=== PATIENT | female | born 1990 | race Caucasian/White ===

== ENCOUNTER 2017-08-08 06:42 | Outpatient (CLI) | payer OTHER | END 2017-08-08 06:43 | disposition home or self-care (01) | LOC: BICRAD 06:42 | PROVIDERS: ATTEND Nurse Practitioner Family | DX: J45.30 Mild persistent asthma, uncomplicated (principal) | CPT/HCPCS: 71046 ==

== ENCOUNTER 2018-03-13 12:24 | Emergency (ER) | payer OTHER ==
[2018-03-13 13:04] LABS: Base Excess-Venous 1.6 mmol/L (0 (+/- 2.5)); Bicarbonate (HCO3v) 24.9 mmol/L (1.0-85.0); CO2 Tension (PvCO2) 34.6 mmHg (41.0-51.0); Calcium, Ionized 1.19 mmol/L (1.12-1.32); Hemoglobin - Calc 13.4 g/dL (12.0-18.0); O2 Tension (PvO2) 53.1 mmHg (35.0-45.0); Potassium 3.1 mmol/L (3.4-4.7); pH (Venous) 7.466 (7.35-7.45); vO2 Saturation-calc 89.3 % (94-98)
[2018-03-13 13:12] LABS: Lactate 1.28 mmol/L (0.50-2.20)
[2018-03-13 13:15] LABS: Bilirubin Negative (Negative); Blood, Urine Trace (Negative); Clarity CLEAR (Clear); Glucose, Urine (Dipstick) Negative (Negative); Leukocyte Trace (Negative); Nitrite Negative (Negative); Protein, Urine (Dipstick) Negative (Neg-Trace); Specific Gravity, Urine 1.015 (1.002-1.036); Urobilinogen 0.2 mg/dL (0.2-1.0)
[2018-03-13 13:17] LABS: Bacteria/HPF Rare-Few HPF (None Seen); Hyaline Casts/LPF 0-3 HYALINE CAST LPF (0-3 Hyaline); Pathc Cast-AUWi Flag 0.14 (0-2.49); Pregnancy Test - Urine (BHCG) Negative (Negative); Pregu Control Background? CLEAR/WHITE (CLR/WHITE); Pregu Control Bar Appear? YES (CONTROL BAR); Specific Gravity 1.015 (1.002-1.036); Squamous Epithelial 0-3 HPF (0-3)
[2018-03-13 13:18] LABS: Renal Epithelial None Seen HPF (0-3); Transitional Epithelial NONE SEEN HPF (0-3)
[2018-03-13 13:20] LABS: #Eosinphils 0.2 thou/uL (0.0-0.7); #Monocytes 1.7 thou/uL (0.11-0.59); #Neutrophils 11.9 thou/uL (1.40-6.50); %Basophils 0.2 % (0.0-1.0); %Eosinophils 1.5 % (0.0-10.0); %Lymphocytes 6.9 % (21.0-51.0); %Monocytes 11.5 % (0.0-10.0); %Neutrophils 79.9 % (42.0-75.0); Hemoglobin 12.5 g/dL (12.0-16.0); Mean Corpuscular HGB CONC 32.6 g/dL (32.0-36.0); Mean Corpuscular Hemoglobin 29.6 pg (27.0-31.0); Mean Platelet Volume 8.6 fL (7.4-10.4); Platelet Count 223 thou/uL (130-400); RBC Distribution Width 12.5 % (11.5-14.5); Red Blood Cell (RBC) Count 4.22 mill/uL (4.20-5.40); White Blood Cell (WBC) Count 14.9 thou/uL (4.8-10.8)
[2018-03-13 13:44] LABS: ALT (SGPT) 11 U/L (8-55); AST (SGOT) 13 U/L (5-34); Albumin 4.1 g/dL (3.5-5.0); Alkaline Phosphatase 45 U/L (40-150); Anion Gap 13 mmol/L (10-20); BUN (Urea Nitrogen) 9 mg/dL (7.0-18.7); Bilirubin, Total 0.2 mg/dL (0.2-1.2); Calc. Creatinine Clearance 0 mL/min (70-130); Calcium 8.9 mg/dL (7.8-10.44); Carbon Dioxide 21 mmol/L (22-29); Chloride 103 mmol/L (98-107); Estimated GFR-MDRD 84; Globulin 2.7 g/dL (2.4-3.5); Glucose 105 mg/dL (70-105); Lipase 11 U/L (8-78); Potassium 3.3 mmol/L (3.5-5.1); Protein, Total 6.8 g/dL (6.0-8.3); Sodium 134 mmol/L (136-145)
--- NOTE | 2018-03-13 13:49 | RAD ---
PORTABLE CHEST 1 VIEW: DATE: 03/13/2018. TIME: 1:44 p.m. HISTORY: Abdominal pain with associated nausea, vomiting, and fever. FINDINGS: The heart size is normal. The lungs are clear. The bony thorax is normal. IMPRESSION: Normal exam. POS: C
[2018-03-13] MEDS ORDERED: cefTRIAXone\\ROCEPHIN 2 GM VIAL ONE (14:33)
[2018-03-13] MEDS ORDERED: Ketorolac Tromethamine 30 MG/ML VIAL ONE (15:10)
[2018-03-13] MEDS ORDERED: Acetaminophen 500 MG TAB ONE (17:27)
--- NOTE | 2018-03-13 18:59 | ULT ---
RENAL ULTRASOUND: 03/13/18 HISTORY: Right flank pain. TECHNIQUE: Multiplanar dye scale and color doppler images were obtained in a renal ultrasound. FINDINGS: The kidneys are normal in echogenicity without hydronephrosis or calculi measuring 10.7 and 10.5 cm i n length on the right and left, respectively. Limited visualization of the urinary bladder is unremarkable. Both ureteral jets were visualized. IMPRESSION: Unremarkable renal ultrasound. POS: CET
== END 2018-03-13 17:53 | disposition home or self-care (01) ==
LOC: ERS 12:24
DX: N12 Tubulo-interstitial nephritis, not specified as acute or chronic (principal); J45.909 Unspecified asthma, uncomplicated; Z79.899 Other long term (current) drug therapy
CPT/HCPCS: 36415; 71045; 76770; 80053; 81003; 81015; 81025; 82330; 82803; 83605; 83690; 85025; 94760; 96361; 96365; 96375; J0696; J1885

== ENCOUNTER 2019-02-04 16:18 | Day surgery (SDC) | payer OTHER ==
[2019-02-04 17:03] VITALS: BP 117/68; TEMP 98
[2019-02-04 17:04] VITALS: BMI 28.3
[2019-02-04] MEDS ORDERED: FLU VACC QS2019-20(6MOS UP)/PF 60 MCG/0.5 ML SYRINGE IM ONE (17:15)
[2019-02-04] MEDS ORDERED: hydrALAZINE 20 MG/ML VIAL SLOW IVP PRN (17:18)
--- NOTE | 2019-02-04 17:21 | PDOC.LDHP ---
Labor and Delivery H&P HPI: Patient of Dr Moran Seen in Triage A at 1725 CO possible CTX and spotting 29 yo PTB X 3 here for possible CTX. Spotting noted, no recent sex, no VB, no LOF. Good FM. No fevers. Also with some urinary urgency- mild. Review of Systems:: Complete ROS completed as per HPI Current gestational age (weeks): 35 (0 days) Due date: 03/11/19 Dating criteria: last menstrual period Grav: 4 Para: 3 OB History Details: HX SVDs PTB prior to 35 weeks Current complications: none Abnormal US findings: No Past Medical History: ASthma Current medications: pre- vitamins, other (Mc[place]ena injection) Allergies/Adverse Reactions: Allergies Allergy/AdvReac Type Severity Reaction Status Date / Time sulfamethoxazole Allergy Verified 02/04/19 16:56 [From ] trimethoprim [From ] Allergy Verified 02/04/19 16:56 - Physical Exam Vital signs reviewed and normal: yes (117/68 100 20 97% 98) General: NAD Heart: RRR Abdomen: gravid Extremeties: no edema FHT: category 1 [place] contractions every: no CTX - Vaginal Exam cm dilated: 3 Effacement: 50% Station: -1 - Assessment THreatened PTL at 35 weeks, 3cm...no active CTX on monitor; urgency - Plan Plan: observation in L&D (I will obs for 2 hrs; check cath UA; Too far along for FFN)
[2019-02-04 17:41] LABS: Bacteria/HPF None Seen HPF (None Seen); Bilirubin Negative (Negative); Blood, Urine Negative (Negative); Clarity Clear (Clear); Glucose, Urine (Dipstick) Normal (Negative); Leukocyte Negative Leu/uL (Negative); Nitrite Negative (Negative); Protein, Urine (Dipstick) Negative (Neg-Trace); RBC/HPF 0-3 HPF (0-3); Squamous Epithelial 0-3 HPF (0-3); Urobilinogen Normal mg/dL (Less than 2); WBC/HPF 0-3 HPF (0-3)
[2019-02-04 17:42] LABS: Urine Culture Reflex No No
--- NOTE | 2019-02-04 18:45 | PDOC.EVN ---
Event Note - Event Note Event Note: Cervix remains unchanged. Clinically well. OK for follow up tomorrow with provider (Uli perez
== END 2019-02-04 18:51 | disposition home or self-care (01) ==
LOC: L&D/OP 16:18
PROVIDERS: ATTEND Obstetrics & Gynecology
DX: O47.03 False labor before 37 completed weeks of gestation, third trimester (principal); O26.853 Spotting complicating pregnancy, third trimester; Z3A.35 35 weeks gestation of pregnancy; Z88.2 Allergy status to sulfonamides
CPT/HCPCS: 81001; 99283; A4353

== ENCOUNTER 2019-02-11 16:23 | Inpatient (IN) | payer OTHER ==
[2019-02-11 17:10] VITALS: BMI 28.3
[2019-02-11 17:30] LABS: Amnisure Test No Membranes Rupture (No Rupture)
[2019-02-11 17:31] LABS: Amnisure Internal Control QC ACCEPTABLE (ACCEPTABLE)
[2019-02-11] MEDS ORDERED: hydrALAZINE 20 MG/ML VIAL SLOW IVP PRN ×2 (18:50→19:41)
--- NOTE | 2019-02-11 18:52 | PDOC.LDHP ---
Labor and Delivery H&P Chief complaint: loss of fluid HPI: Patient of Dr Moran, s/p celestone course at 33 weeks. 28 weeks at 36 weeks 0 days, with poss LOF. GBS sent at 22 weeks ( 3 weeks ago) Good FM, no VB. No fevers Review of Systems: complete ROS performed and as per HPI Due date: 03/11/19 Grav: 4 Para: 3 OB History Details: HX PTB from 27 to 34 weeks Current complications: none Past Medical History: None Previous surgical history: other (7 years ago arm surgery...elbow repair (right) ) Allergies/Adverse Reactions: Allergies Allergy/AdvReac Type Severity Reaction Status Date / Time sulfamethoxazole Allergy Verified 02/11/19 17:11 [From ] trimethoprim [From ] Allergy Verified 02/11/19 17:11 Social history: none - Physical Exam Vital signs reviewed and normal: yes (124/81 afebrile, pulse 80s) General: NAD FHT: category 1 [place] contractions every: none - Assessment Possible PPROM at 36 weeks 0 days, need to check GBS result. Was 3cm at last check on 02/04/19. negative: SSE now...see plan. LATEX ALLERGY - Plan Plan: observation in L&D, other (I reviewed SSE with pateint and . I performed SSE and I found white fluid at post fornix but no LOF per os. I recollecetd ANOTHER amnisure as double check. The fluid doesnt appear as amniotic fluid buit I do suspect BV. I also sent off a VP3. As of yet, DX still unclear...await test results.)
[2019-02-11 19:31] LABS: Amnisure Test RUPTURE DETECTED (No Rupture)
[2019-02-11 19:32] LABS: Amnisure Internal Control QC ACCEPTABLE (ACCEPTABLE)
[2019-02-11] MEDS ORDERED: HYDROcodone/Acetaminophen 5/325 mg Tablet PO PRN ×2 (19:41)
[2019-02-11] MEDS ORDERED: Lidocaine 1% (PF) 30 ML VIAL SC PRN (19:41)
[2019-02-11] MEDS ORDERED: Butorphanol Tartrate 1 MG/ML VIAL SLOW IVP PRN (19:41)
[2019-02-11] MEDS ORDERED: Ibuprofen 800 MG TAB PO PRN (19:41)
[2019-02-11] MEDS ORDERED: Ondansetron PF 4 MG/2 ML Vial IVP PRN (19:41)
[2019-02-11] MEDS ORDERED: Promethazine HCl 25 MG/ML VIAL IM PRN (19:41)
[2019-02-11] MEDS ORDERED: NS / Oxytocin 40 units/1000ml 1,000 ML IV PRN (19:41)
--- NOTE | 2019-02-11 19:41 | PDOC.EVN ---
Event Note - Event Note Event Note: Amnisure was positive GBS was negative...from 01/28/19 We will admit and begin pitocin at 0000 if no labor spontaneously
[2019-02-11] MEDS: Lactated Ringer's 1,000 ML IV SCH (21:07)
--- NOTE | 2019-02-11 21:23 | PDOC.EVN ---
Event Note - Event Note Event Note: Present in room for RN exam: cephalic /-3...pitocin ordered, pending
[2019-02-11 21:38] LABS: Hemoglobin 11.6 g/dL (12.0-16.0); Mean Corpuscular HGB CONC 33.9 g/dL (32.0-36.0); Mean Corpuscular Hemoglobin 29.5 pg (27.0-31.0); Mean Corpuscular Volume 86.9 fL (78.0-98.0); Platelet Count 265 thou/uL (130-400); RBC Distribution Width 13.2 % (11.5-14.5); Red Blood Cell (RBC) Count 3.93 mill/uL (4.20-5.40); White Blood Cell (WBC) Count 14.5 thou/uL (4.8-10.8)
[2019-02-11 22:17] LABS: Syphilis Antibody Nonreactive (Nonreactive); Syphilis Antibody Index 0.04 S/CO (<1.00 Non-Reactive)
[2019-02-11 22:40] LABS: HBSAg Index 0.35 S/CO (0-0.99); HIV (1/2) Antibody/Antigen Non-Reactive (NonReactive); HIV 1/2 INDEX 0.08 S/CO (<1.00); Hep B Surf Ag Non-Reactive S/CO (NonReactive)
[2019-02-11] MEDS ORDERED: NS w/ Oxytocin 10 units 500 ML IV SCH (23:45)
[2019-02-11] MEDS: Fentanyl 4 mcg/Bup 0.1% Cadd 100 ML ONE (23:48)
[2019-02-11] MEDS: NS w/ Oxytocin 10 units 500 ML IV SCH (23:48)
[2019-02-12] MEDS: Lactated Ringer's 1,000 ML IV SCH (01:15)
--- NOTE | 2019-02-12 06:32 | PDOC.LDPN ---
Labor & Delivery Progress Note - Subjective Subjective: comfortable (KURTIS in use) - Objective Vital signs reviewed and normal: yes General: NAD Uterine fundus: non tender SVE: By RN at last check Dilation: 4 FHT: category 1 Other exam findings: IUPC with regular CTX every 2minutes, adequate IUPC placed: yes (Earlier this AM) Plan: continue plan of care, labor augmentation (in use...4cm, still latent phase but she is feeling more pressure, try to limit SVEs due to ROM. GBS neg. Adequate CTX. Await progress. KURTIS in use- patient is comfortable.)
[2019-02-12] MEDS ORDERED: Fentanyl 4 mcg/Bup 0.1% Cadd 100 ML ONE ×2 (06:42→12:54)
[2019-02-12] MEDS ORDERED: Mag-Al 1200 mg/1200 mg/30 ML UDCUP PO SCH (08:00)
[2019-02-12] MEDS ORDERED: FLU VACC QS2019-20(6MOS UP)/PF 60 MCG/0.5 ML SYRINGE IM ONE (09:00)
[2019-02-12] MEDS ORDERED: diphenhydrAMINE 50 MG/ML VIAL ONE (10:25)
[2019-02-12] MEDS: NS w/ Oxytocin 10 units 500 ML IV SCH (12:37)
[2019-02-12] MEDS: Fentanyl 4 mcg/Bup 0.1% Cadd 100 ML ONE (13:13)
--- NOTE | 2019-02-12 14:21 | PDOC.OPDEL ---
OB Operative/Delivery Note Delivery Dr/Surgeon: Jc Galindo Pre-Delivery Diagnosis: active labor, ruptured membrane Procedure/Post Delivery Dx: spontaneous vaginal delivery Weeks gestation: 36 Anesthesia: epidural - Findings A Sex: female Weight: 0 oz - 1 min: 9 - 5 min: 9 - Additional Findings/Plan Placenta delivered: spontaneous Repaired Obstetrical Laceration: none Estimated blood loss: 100 Compilations/Other Findings: uncomplicated at 1407. baby to matl abd. cord blood sample. intact placenta. no repair Post delivery plan: routine recovery
[2019-02-12] MEDS ORDERED: Ondansetron PF 4 MG/2 ML Vial IVP PRN (15:14)
[2019-02-12] MEDS ORDERED: Preparation H Ointment 28 GM TUBE PR PRN (15:14)
[2019-02-12] MEDS ORDERED: HYDROcodone/Acetaminophen 5/325 mg Tablet PO PRN (15:14)
[2019-02-12] MEDS ORDERED: Bisacodyl 10 MG SUPP PR PRN (15:14)
[2019-02-12] MEDS ORDERED: hydrALAZINE 20 MG/ML VIAL SLOW IVP PRN (15:14)
[2019-02-12] MEDS ORDERED: diphenhydrAMINE 25 MG CAP PO PRN (15:14)
[2019-02-12] MEDS ORDERED: Adacel (T-DAP) 0.5 ML SYRINGE IM ONE (15:14)
[2019-02-12] MEDS ORDERED: Promethazine HCl 25 MG/ML VIAL IM PRN (15:14)
[2019-02-12] MEDS ORDERED: PROVENTIL INHALER 6.7 G (200 INHALATIONS) INH PRN (15:14)
[2019-02-12] MEDS ORDERED: Lanolin Ointment 7 GM TUBE TOP PRN (15:14)
[2019-02-12] MEDS ORDERED: Zolpidem Tartrate 5 MG TAB PO PRN (15:14)
[2019-02-12] MEDS ORDERED: NS / Oxytocin 40 units/1000ml 1,000 ML IV SCH (15:14)
[2019-02-12] MEDS ORDERED: Milk Of Magnesia 30 ML UDCUP PO PRN (15:14)
[2019-02-12] MEDS ORDERED: Ferrous Sulfate 325 MG TAB PO SCH (17:00)
[2019-02-12] MEDS: Benzocaine-Menthol 82.5 ML CAN TOP PRN (17:54)
[2019-02-12] MEDS: HYDROcodone/Acetaminophen 5/325 mg Tablet PO PRN (17:54)
[2019-02-12] MEDS: Ibuprofen 800 MG TAB PO SCH (21:31)
[2019-02-12] MEDS: Docusate Calcium (SURFAK) 240 MG CAP PO SCH (21:31)
[2019-02-13] MEDS: HYDROcodone/Acetaminophen 5/325 mg Tablet PO PRN ×2 (02:45→14:20)
[2019-02-13] MEDS: Lactated Ringer's 1,000 ML IV SCH (03:24)
[2019-02-13] MEDS: Ibuprofen 800 MG TAB PO SCH ×2 (05:23→14:22)
--- NOTE | 2019-02-13 07:28 | DIS ---
DATE OF ADMISSION: 02/11/2019 DATE OF DISCHARGE: 02/13/2019 TIME OF SERVICE: 0700 hours. The patient is approximately 18 hours status post . She is resting comfortably. Desires discharge this p.m. at 24 hours. PHYSICAL EXAMINATION: VITAL SIGNS: Temperature 97.8, pulse 75, respirations 18, blood pressure 112/67. HEENT: Within normal limits. LUNGS: Clear to auscultation bilaterally. HEART: Regular rhythm. ABDOMEN: Soft and nontender. No rebound or guarding. Normal lochia. EXTREMITIES: No clubbing, cyanosis, or edema. IMPRESSION: Doing well status post normal spontaneous vaginal delivery without significant laceration. PLAN: Discharge this p.m. Keep scheduled followup with Dr. Galindo. Job ID: [id number]
[2019-02-13] MEDS: Docusate Calcium (SURFAK) 240 MG CAP PO SCH (08:39)
[2019-02-13] MEDS: Benzocaine-Menthol 82.5 ML CAN TOP PRN (08:41)
[2019-02-13] MEDS ORDERED: Montelukast Sodium 10 mg Tablet PO SCH (09:00)
[2019-02-13] MEDS ORDERED: Prenatal Vitamin 1 TAB PO SCH (09:00)
[2019-02-13 14:48] VITALS: BP 116/65; TEMP 98.5
== END 2019-02-13 14:59 | disposition home or self-care (01) | DRG 807 ==
LOC: L&D/OP 16:23 → L&D 20:00 → 3SW 02-12 17:35
PROVIDERS: ADMIT Obstetrics & Gynecology; ATTEND Obstetrics & Gynecology
PROC: 10E0XZZ Delivery of Products of Conception, External Approach (ICD-10-PCS; principal; 2019-02-12)
DX: O42.913 Preterm premature rupture of membranes, unspecified as to length of time between rupture and onset of labor, third trimester (principal); Z37.0 Single live birth; Z3A.36 36 weeks gestation of pregnancy
CPT/HCPCS: 36415; 36416; 84112; 85027; 86780; 86850; 86900; 86901; 87340; 87389; 87480; 87510; 87660; J1200; J2590

== ENCOUNTER 2024-03-26 09:07 | Emergency (ER) | payer OTHER ==
[2024-03-26 09:40] LABS: #Basophils 0.04 10x3/uL (0.0-0.2); %Basophils 0.7 % (0.0-1.0); %Eosinophils 4.4 % (0.0-10.0); %Lymphocytes 32.6 % (21.0-51.0); %Monocytes 10.2 % (0.0-10.0); %Neutrophils 52.1 % (42.0-75.0); Hematocrit 40.4 % (36.0-47.0); Hemoglobin 13.4 g/dL (12.0-16.0); Mean Corpuscular HGB CONC 33.2 g/dL (32.0-36.0); Mean Corpuscular Hemoglobin 29.1 pg (27.0-31.0); Mean Corpuscular Volume 87.8 fL (78.0-98.0); Platelet Count 230 10x3/uL (130-400); RBC Distribution Width 14.3 % (11.5-14.5)
[2024-03-26 10:06] LABS: ALT (SGPT) 9 U/L (8-55); AST (SGOT) 15 U/L (5-34); Albumin 4.2 g/dL (3.5-5.0); Alkaline Phosphatase 38 U/L (40-110); Anion Gap 13 mmol/L (10-20); BUN (Urea Nitrogen) 11 mg/dL (7.0-18.7); Bilirubin, Total 0.7 mg/dL (0.2-1.2); Calc. Creatinine Clearance 0 mL/min (70-130); Carbon Dioxide 21 mmol/L (22-29); Chloride 107 mmol/L (98-107); Estimated GFR 87; Globulin 2.9 g/dL (2.4-3.5); Glucose 102 mg/dL (70-105); Lipase 26 U/L (8-78); Potassium 3.7 mmol/L (3.5-5.1); Protein, Total 7.1 g/dL (6.0-8.3); Sodium 137 mmol/L (136-145)
[2024-03-26 10:26] LABS: Bilirubin Negative (Negative); Blood, Urine Negative (Negative); Glucose, Urine (Dipstick) Negative (Negative); Ketone, Urine Negative (Negative); Leukocyte Negative (Negative); Nitrite Negative (Negative); Protein, Urine (Dipstick) Negative (Neg-Trace); Urobilinogen 0.2 mg/dL (Less than 2)
[2024-03-26 10:29] LABS: Clarity Clear (Clear); Specific Gravity, Urine 1.006 (1.002-1.036)
[2024-03-26 10:31] LABS: Pregnancy Test - Urine (BHCG) Negative (Negative); Pregu Control Background? CLEAR/WHITE (CLR/WHITE); Pregu Control Bar Appear? YES (CONTROL BAR); Specific Gravity 1.006 (1.002-1.036)
[2024-03-26 10:32] LABS: CAUTI Indications for Culture Pelvic or flank pain; RBC/HPF 0-3 HPF (0-3); WBC/HPF None Seen HPF (0-3)
[2024-03-26 10:33] LABS: Bacteria/HPF None Seen HPF (None Seen); Urine Culture Reflex No No
[2024-03-26] MEDS ORDERED: Mag-Al 1200 mg/1200 mg/30 ML UDCUP ONE (10:47)
[2024-03-26] MEDS ORDERED: Famotidine 20 MG TAB ONE (10:47)
[2024-03-26] MEDS ORDERED: Lidocaine Viscous Sol 2% 15 ml UD Cup ONE (10:47)
== END 2024-03-26 12:20 | disposition home or self-care (01) ==
LOC: ERS 09:07
DX: R10.13 Epigastric pain (principal); F17.210 Nicotine dependence, cigarettes, uncomplicated
CPT/HCPCS: 36415; 71045; 76705; 80053; 81001; 81025; 83690; 85025